=== PATIENT | female | born 1985 | race Caucasian/White ===

== ENCOUNTER → 2017-06-20 | Outpatient (CLI) | payer OTHER ==
[~2017-06-20] MED LIST: SINCALIDE (KINEVAC) 5 MCG ONE
== END | disposition home or self-care (01) ==
LOC: PETCFH 08:45
PROVIDERS: ATTEND Physician Assistant Medical
DX: R19.7 Diarrhea, unspecified (principal); R10.9 Unspecified abdominal pain; R63.4 Abnormal weight loss; K62.5 Hemorrhage of anus and rectum; G43.909 Migraine, unspecified, not intractable, without status migrainosus
CPT/HCPCS: 78227; A9537; J2805

== ENCOUNTER 2017-07-14 11:58 | Day surgery (SDC) | payer OTHER ==
[~2017-07-14] VITALS: Ht 156.2 cm; Wt 65.1 kg
[~2017-07-14 11:58] MED LIST changes: +BUPIVACAINE/PF-EPI 0.5% 1:200K ONE; -SINCALIDE (KINEVAC) 5 MCG ONE
[2017-07-14 12:27] VITALS: BP 105/52
[2017-07-14] MEDS ORDERED: ONDANSETRON ODT 8 MG PO ONE (12:30)
[2017-07-14] MEDS ORDERED: OxyconTIN ER 10 MG TAB.ER PO ONE (12:30)
[2017-07-14] MEDS ORDERED: GABAPENTIN 300 MG CAPSULE PO ONE (12:30)
[2017-07-14] MEDS ORDERED: ACETAMINOPHEN 500 MG TABLET PO ONE (12:30)
[2017-07-14] MEDS ORDERED: LACTATED RINGERS 1,000 ML IV SCH (12:54)
[2017-07-14] MEDS ORDERED: APREPITANT 40 MG CAPSULE ONE (13:52)
[2017-07-14] MEDS ORDERED: MIDAZOLAM 1 MG/ML, 2ML ONE (14:16)
[2017-07-14] MEDS ORDERED: FENTANYL PF 250 MCG/5ML ONE (14:16)
[2017-07-14] MEDS ORDERED: PIPERACILLIN/TAZO/PMX 3.375GM 50 ML ONE ×2 (14:20→14:24)
[2017-07-14] MEDS ORDERED: DEXAMETHASONE 4 MG/ML, 5ML ONE (14:24)
[2017-07-14] MEDS ORDERED: PROPOFOL 10 MG/ML, 20ML ONE (14:24)
[2017-07-14] MEDS ORDERED: ROCURONIUM 10 MG/ML,10ML ONE (14:24)
[2017-07-14] MEDS ORDERED: OXYcodone 5 MG/5 ML ORAL.SOL UDC PO PRN (15:30)
[2017-07-14] MEDS ORDERED: hydrALAzine 20 MG/ML, 1ML IV PRN (15:30)
[2017-07-14] MEDS ORDERED: MEPERIDINE/PF 25MG/0.5ML IVPush PRN (15:30)
[2017-07-14] MEDS ORDERED: PROMETHAZINE 25 MG/ML, 1ML IV PRN (15:30)
[2017-07-14] MEDS ORDERED: MORPHINE SULFATE 4 MG/ML, 1ML IVPush PRN (15:30)
[2017-07-14] MEDS ORDERED: FENTANYL PF 100 MCG/2ML ONE (15:30)
[2017-07-14] MEDS ORDERED: LABETALOL 5MG/ML, 20ML IV PRN (15:30)
[2017-07-14] MEDS: FENTANYL PF 100 MCG/2ML IV PRN ×3 (15:32→15:53)
[2017-07-14] MEDS ORDERED: OXYcodone 5 MG/5 ML ORAL.SOL UDC ONE (15:35)
[2017-07-14] MEDS ORDERED: DIPHENHYDRAMINE 50 MG/ML, 1ML ONE (17:41)
[2017-07-14] MEDS ORDERED: DIPHENHYDRAMINE 50 MG/ML, 1ML IVPush ONE (18:00)
== END 2017-07-14 18:15 | disposition home or self-care (01) ==
LOC: OUT 11:58
PROVIDERS: ATTEND Surgery
DX: G43.909 Migraine, unspecified, not intractable, without status migrainosus (principal); I10 Essential (primary) hypertension; E11.9 Type 2 diabetes mellitus without complications; Z98.890 Other specified postprocedural states
CPT/HCPCS: 47562; 81025; 88304; J1100; J1200; J2250; J2543; J2704; J3010; J7120; Q0162; J8501